=== PATIENT | female | born 1955 | race Caucasian/White ===

== ENCOUNTER → 2016-11-11 | Outpatient (CLI) | payer OTHER ==
[~2016-11-11] MED LIST: ACETAMINOPHEN-H1 TA2 PO; ASPIRIN325 M2 PO; ASPIRIN81 M1 PO; ASPIRIN81 MG PO; ATIVAN0.5 MG PO; BIAXIN FILMTAB250 MG PO; DARVOCET N 1001 TAB PO; DAYPRO600 M1 PO; DITROPAN XL10 MG PO; DOXYCYCLINE100 M3 PO; FLAGYL500 MG PO; FLEXERIL5 MG PO; FLOMAX0.4 MG PO; LEVAQUIN750 MG PO; LIPITOR40 MG PO; METRONIDAZOLE500 MG PO; NATURE'S BLEND F1 MG PO; OMEGA 31000 MG PO; OMEGA-31000 M1 PO; OMEPRAZOLE40 MG PO; PERCOCET 325 MG1 TA4 PO; PRAVASTATIN SOD40 MG PO; PRILOSEC40 M1 PO; TOPAMAX25 M3 PO; TORADOL10 MG PO; VIBRAMYCIN100 MG PO; VITAMIN D2000 IU PO; VITAMIN D5000 UNI1 PO
== END | disposition home or self-care (01) ==
LOC: CARD 09:55
DX: R00.2 Palpitations (principal)

== ENCOUNTER → 2017-08-09 | Outpatient (CLI) | payer OTHER | END | disposition home or self-care (01) | LOC: RAD 17:24 | DX: J44.1 Chronic obstructive pulmonary disease with (acute) exacerbation (principal); F17.200 Nicotine dependence, unspecified, uncomplicated; J18.9 Pneumonia, unspecified organism ==

== ENCOUNTER 2018-04-22 11:29 | Emergency (ER) | payer OTHER ==
[~2018-04-22] VITALS: Ht 157.4 cm; Wt 71.2 kg
--- NOTE | ~2018-04-22 | EKG ---
[place], [place] ELECTROCARDIOGRAM REPORT NAME: ANABELA ROGEL UNIT #: [id number] ROOM: DOCTOR: CAMILLE BROOKS MD BIRTHDATE: [birth year] DOS: 04/22/2018 TIME: 1212 hours. FINDINGS: 1. Normal sinus rhythm and sinus bradycardia at 51 beats per minute. 2. Flat T waves in chest leads. 3. An abnormal ECG. 4. No previous tracing is available for comparison. CAMILLE BROOKS MD CM:EKGRPT:ELECTROCARDIOGRAM REPORT [id number] 1412 CAMILLE BROOKS MD
[2018-04-22 12:14] LABS: BASO # 0.1 10*3/uL (0.0-0.1); BASO % 0.7 % (0.0-1.0); EOS # 0.3 10*3/uL (0.0-0.4); EOS % 2.8 % (1.0-4.0); HEMATOCRIT 40.6 % (37.0-47.0); HEMOGLOBIN 13.3 g/dl (12.0-16.0); LYMPH # 4.5 10*3/uL (1.3-4.4); LYMPH % 37.9 % (27.0-41.0); MEAN CELL VOLUME 85.8 fl (81.0-99.0); MEAN CORPUSCULAR HGB 28.1 pg (27.0-31.0); MEAN CORPUSCULAR HGB CONC 32.8 g/dl (33.0-37.0); MEAN PLATELET VOLUME 10.4 fl (9.6-12.3); MONO # 0.5 10*3/uL (0.1-1.0); MONO % 4.4 % (3.0-9.0); NEUT # 6.3 10*3/uL (2.3-7.9); NEUT % 53.9 % (47.0-73.0); PLATELET COUNT AUTOMATED 225 10*3/uL (130-400); RED BLOOD COUNT 4.73 10*6/uL (4.10-5.10); RED CELL DISTRI WIDTH 13.5 % (0-14.5); WHITE BLOOD COUNT 11.7 10*3/uL (4.8-10.8)
[2018-04-22 12:22] LABS: ACT PARTIAL THROMBO TIME 25.4 SECONDS (20.8-31.5); INTERNATIONAL NORM RATIO 0.9 (2.0-3.5)
[2018-04-22 12:30] LABS: ALBUMIN 3.8 gm/dl (3.1-4.5); ALKALINE PHOSPHATASE 79 U/L (45-117); BUN 14 mg/dl (7-24); CHLORIDE 110 mmol/L (98-107); CREATININE 0.85 mg/dL (0.55-1.02); SGOT/AST 11 IU/L (3-35); SGPT/ALT 19 U/L (12-78); SODIUM 140 mmol/L (136-145); TOTAL PROTEIN 7.5 gm/dL (6.4-8.2)
[2018-04-22 12:33] LABS: TROPONIN I < 0.015 ng/ml (<0.045)
[2018-04-22 12:51] LABS: BILIRUBIN NEGATIVE (NEGATIVE); BLOOD NEGATIVE (NEGATIVE); CLARITY CLEAR (CLEAR); COLOR YELLOW (YELLOW); GLUCOSE NEGATIVE (NEGATIVE); KETONE NEGATIVE (NEGATIVE); SPECIFIC GRAVITY 1.005 (1.005-1.030)
[2018-04-22 12:52] LABS: BACTERIA 1+; LEUKO ESTERASE NEGATIVE (NEGATIVE); NITRITE NEGATIVE (NEGATIVE); UROBILINOGEN 0.2 E.U./dl (0.2-1.0)
== END 2018-04-22 13:29 | disposition home or self-care (01) ==
LOC: ED 11:29
PROVIDERS: Nurse Practitioner Family
DX: G45.9 Transient cerebral ischemic attack, unspecified (principal); R00.2 Palpitations; F17.200 Nicotine dependence, unspecified, uncomplicated; Z90.49 Acquired absence of other specified parts of digestive tract; Z79.899 Other long term (current) drug therapy; Z79.82 Long term (current) use of aspirin

== ENCOUNTER → 2018-09-22 | Outpatient (CLI) | payer OTHER | END | disposition home or self-care (01) | LOC: MAMMO 06:54 | DX: Z12.31 Encounter for screening mammogram for malignant neoplasm of breast (principal) ==

== ENCOUNTER → 2020-09-24 | Outpatient (CLI) | payer OTHER ==
[~2020-09-24] MED LIST changes: +ADV 100/50 INH; +ATENOLOL25 MG PO; +ATORVASTATIN CA80 M1 PO; +Carafate1 GM PO; +FLUTICASONE-SA1 EAC4 INH; +LORATADINE-D 11 EACH PO; +NAPROXEN375 MG PO; +OMEGA-3-ACID ETH1 GM PO; +PROVENTIL HFA6.7 GM INH; +SPIRIVA RESPIMAT4 G1 IH; +VENT7GM INH; +VITAMIN D3125 MCG PO
== END | disposition home or self-care (01) ==
LOC: COVID19 10:51
PROVIDERS: ATTEND Internal Medicine
DX: U07.1 COVID-19 (principal)

== ENCOUNTER → 2020-10-16 | Outpatient (CLI) | payer OTHER | END | disposition home or self-care (01) | LOC: MAMMO 09-25 09:30 | PROVIDERS: ATTEND Internal Medicine Nephrology | DX: Z12.31 Encounter for screening mammogram for malignant neoplasm of breast (principal) ==

== ENCOUNTER → 2020-10-17 | Outpatient (CLI) | payer OTHER | END | disposition home or self-care (01) | LOC: NM 07:43 | PROVIDERS: ATTEND Internal Medicine | DX: R10.11 Right upper quadrant pain (principal); R10.13 Epigastric pain ==

== ENCOUNTER → 2020-11-26 | Outpatient (CLI) | payer OTHER ==
[~2020-11-26] MED LIST changes: +CITALOPRAM20 MG PO; +DOXYCYCLINE100 MG PO; +MEDROL DOSEPAK4 MG PO; +NEURONTIN100 MG PO
== END | disposition home or self-care (01) ==
LOC: RAD 11:22
PROVIDERS: ATTEND Internal Medicine Nephrology
DX: J43.9 Emphysema, unspecified (principal); F32.2 Major depressive disorder, single episode, severe without psychotic features

== ENCOUNTER 2020-12-02 12:32 | Inpatient (IN) | payer OTHER ==
[~2020-12-02] VITALS: Ht 157.4 cm; Wt 71.8 kg
[~2020-12-02 12:32] MED LIST changes: -CITALOPRAM20 MG PO; -DOXYCYCLINE100 MG PO; -MEDROL DOSEPAK4 MG PO; -NEURONTIN100 MG PO
[2020-12-02 13:05] LABS: HEMATOCRIT 37.5 % (37.0-47.0); MEAN CELL VOLUME 83.5 fl (81.0-99.0); MEAN CORPUSCULAR HGB 27.2 pg (27.0-31.0); MEAN CORPUSCULAR HGB CONC 32.5 g/dl (33.0-37.0); PLATELET COUNT AUTOMATED 235 10*3/uL (130-400); RED BLOOD COUNT 4.49 10*6/uL (4.10-5.10); RED CELL DISTRI WIDTH 14.6 % (0-14.5); WHITE BLOOD COUNT 13.3 10*3/uL (4.8-10.8)
[2020-12-02 13:16] LABS: ACT PARTIAL THROMBO TIME 23.1 SECONDS (20.0-32.1); INTERNATIONAL NORM RATIO 0.9 (2.0-3.5)
[2020-12-02 13:19] VITALS: BP 109/60
[2020-12-02 13:21] LABS: LIPASE 110 U/L (73-393)
[2020-12-02 13:22] LABS: ATYPICAL LYMPHS 1 % (0-0); PLATELET SUFFICIENCY NORMAL (NORMAL); TOTAL CELLS COUNTED 100 #CELLS
[2020-12-02 13:23] LABS: ALBUMIN 3.3 gm/dl (3.1-4.5); ALKALINE PHOSPHATASE 82 U/L (45-117); BUN 15 mg/dl (7-24); CHLORIDE 112 mmol/L (98-107); CREATININE 0.73 mg/dL (0.55-1.02); POTASSIUM 3.8 mmol/L (3.5-5.1); SGOT/AST 6 IU/L (3-35); SGPT/ALT 20 U/L (12-78); SODIUM 142 mmol/L (136-145); TOTAL PROTEIN 6.8 gm/dL (6.4-8.2)
[2020-12-02 13:26] LABS: TROPONIN I < 0.015 ng/ml (<0.045)
[2020-12-02] MEDS ORDERED: MEDROL DOSEPAK4 MG PO (15:02)
[2020-12-02 16:11] VITALS: BP 112/67
[2020-12-02 16:54] VITALS: BP 101/62
[2020-12-02 21:06] LABS: BASO # 0.1 10*3/uL (0.0-0.1); BASO % 0.6 % (0.0-1.0); EOS # 0.2 10*3/uL (0.0-0.4); EOS % 1.7 % (1.0-4.0); HEMATOCRIT 37.1 % (37.0-47.0); LYMPH # 3.2 10*3/uL (1.3-4.4); LYMPH % 30.9 % (27.0-41.0); MEAN CELL VOLUME 83.7 fl (81.0-99.0); MEAN CORPUSCULAR HGB 27.5 pg (27.0-31.0); MEAN CORPUSCULAR HGB CONC 32.9 g/dl (33.0-37.0); MEAN PLATELET VOLUME 9.9 fl (9.6-12.3); MONO # 0.4 10*3/uL (0.1-1.0); NEUT # 6.4 10*3/uL (2.3-7.9); NEUT % 62.3 % (47.0-73.0); PLATELET COUNT AUTOMATED 226 10*3/uL (130-400); RED BLOOD COUNT 4.43 10*6/uL (4.10-5.10); RED CELL DISTRI WIDTH 14.6 % (0-14.5); WHITE BLOOD COUNT 10.3 10*3/uL (4.8-10.8)
[2020-12-02 21:21] LABS: ALBUMIN 3.2 gm/dl (3.1-4.5); ALKALINE PHOSPHATASE 78 U/L (45-117); BUN 16 mg/dl (7-24); CHLORIDE 111 mmol/L (98-107); CREATININE 0.71 mg/dL (0.55-1.02); POTASSIUM 3.9 mmol/L (3.5-5.1); SGOT/AST 7 IU/L (3-35); SGPT/ALT 21 U/L (12-78); SODIUM 141 mmol/L (136-145); TOTAL PROTEIN 6.5 gm/dL (6.4-8.2)
[2020-12-02] MEDS ORDERED: CITALOPRAM20 MG PO (22:32)
[2020-12-02 22:36] VITALS: BP 122/56
[2020-12-03] VITALS: BP 117/87
[2020-12-03 08:00] VITALS: BP 111/57
[2020-12-03 12:00] VITALS: BP 102/48
[2020-12-03 18:00] VITALS: BP 100/48
[2020-12-03 20:25] VITALS: BP 115/54
[2020-12-04] VITALS: BP 100/40
[2020-12-04 06:34] LABS: BASO % 0.1 % (0.0-1.0); HEMATOCRIT 34.5 % (37.0-47.0); LYMPH # 3.3 10*3/uL (1.3-4.4); LYMPH % 15.1 % (27.0-41.0); MEAN CELL VOLUME 85.4 fl (81.0-99.0); MEAN CORPUSCULAR HGB CONC 32.8 g/dl (33.0-37.0); MEAN PLATELET VOLUME 10.5 fl (9.6-12.3); MONO % 4.8 % (3.0-9.0); NEUT # 17.1 10*3/uL (2.3-7.9); PLATELET COUNT AUTOMATED 214 10*3/uL (130-400); RED BLOOD COUNT 4.04 10*6/uL (4.10-5.10); RED CELL DISTRI WIDTH 15.1 % (0-14.5); WHITE BLOOD COUNT 21.7 10*3/uL (4.8-10.8)
[2020-12-04 06:49] LABS: BUN 15 mg/dl (7-24); CHLORIDE 112 mmol/L (98-107); CREATININE 0.62 mg/dL (0.55-1.02); SODIUM 141 mmol/L (136-145)
[2020-12-04 08:00] VITALS: BP 132/77
[2020-12-04 12:00] VITALS: BP 108/48
[2020-12-04 16:00] VITALS: BP 97/43
[2020-12-04 20:00] VITALS: BP 122/60
[2020-12-05] VITALS: BP 115/49
[2020-12-05 06:47] LABS: HEMATOCRIT 35.7 % (37.0-47.0); MEAN CELL VOLUME 84.2 fl (81.0-99.0); MEAN CORPUSCULAR HGB 27.1 pg (27.0-31.0); MEAN CORPUSCULAR HGB CONC 32.2 g/dl (33.0-37.0); MEAN PLATELET VOLUME 10.3 fl (9.6-12.3); PLATELET COUNT AUTOMATED 231 10*3/uL (130-400); RED BLOOD COUNT 4.24 10*6/uL (4.10-5.10); RED CELL DISTRI WIDTH 15.4 % (0-14.5); WHITE BLOOD COUNT 19.2 10*3/uL (4.8-10.8)
[2020-12-05 07:06] LABS: BUN 19 mg/dl (7-24); CHLORIDE 110 mmol/L (98-107); CREATININE 0.77 mg/dL (0.55-1.02); IRON 74 ug/dL (50-170); POTASSIUM 4.2 mmol/L (3.5-5.1); SODIUM 142 mmol/L (136-145); TOTAL IRON BINDING CAPACITY 284 ug/dl (250-450)
[2020-12-05 07:36] LABS: OVALOCYTES FEW; PLATELET SUFFICIENCY NORMAL (NORMAL); TOTAL CELLS COUNTED 100 #CELLS
[2020-12-05 08:00] VITALS: BP 118/56
[2020-12-05 12:00] VITALS: BP 100/47
[2020-12-05 16:00] VITALS: BP 107/48
[2020-12-05 20:00] VITALS: BP 130/76; BP 131/68
[2020-12-06] VITALS: BP 110/57
[2020-12-06 06:23] LABS: HEMATOCRIT 36.6 % (37.0-47.0); MEAN CELL VOLUME 84.9 fl (81.0-99.0); MEAN CORPUSCULAR HGB 27.4 pg (27.0-31.0); MEAN CORPUSCULAR HGB CONC 32.2 g/dl (33.0-37.0); MEAN PLATELET VOLUME 9.9 fl (9.6-12.3); PLATELET COUNT AUTOMATED 218 10*3/uL (130-400); RED BLOOD COUNT 4.31 10*6/uL (4.10-5.10); RED CELL DISTRI WIDTH 15.2 % (0-14.5); WHITE BLOOD COUNT 19.4 10*3/uL (4.8-10.8)
[2020-12-06 06:44] LABS: BUN 19 mg/dl (7-24); CHLORIDE 108 mmol/L (98-107); CREATININE 0.68 mg/dL (0.55-1.02); POTASSIUM 4.2 mmol/L (3.5-5.1); SODIUM 139 mmol/L (136-145)
[2020-12-06 07:17] LABS: PLATELET SUFFICIENCY NORMAL (NORMAL); TOTAL CELLS COUNTED 100 #CELLS
[2020-12-06 08:00] VITALS: BP 115/56
[2020-12-06 12:00] VITALS: BP 100/53
[2020-12-06] MEDS ORDERED: DOXYCYCLINE100 MG PO (12:54)
[2020-12-06] MEDS ORDERED: OMEPRAZOLE40 MG PO (12:54)
[2020-12-06] MEDS ORDERED: NEURONTIN100 MG PO (12:54)
[2020-12-06] MEDS ORDERED: MEDROL DOSEPAK4 MG PO (12:54)
== END 2020-12-06 14:30 | disposition home or self-care (01) | DRG 140 ==
LOC: ED 12:32 → EDHOLD 18:10 → 5E 18:10
PROVIDERS: Emergency Medicine; Student in an Organized Health Care Education/Training Program; ADMIT Internal Medicine; ATTEND Internal Medicine
DX: J44.1 Chronic obstructive pulmonary disease with (acute) exacerbation (principal); D72.829 Elevated white blood cell count, unspecified; E78.5 Hyperlipidemia, unspecified; K21.9 Gastro-esophageal reflux disease without esophagitis; E44.0 Moderate protein-calorie malnutrition; R00.1 Bradycardia, unspecified; E66.3 Overweight; E87.8 Other disorders of electrolyte and fluid balance, not elsewhere classified; R73.9 Hyperglycemia, unspecified; I73.9 Peripheral vascular disease, unspecified; G89.29 Other chronic pain; G43.909 Migraine, unspecified, not intractable, without status migrainosus; K29.70 Gastritis, unspecified, without bleeding; F17.200 Nicotine dependence, unspecified, uncomplicated; M25.559 Pain in unspecified hip; Z90.49 Acquired absence of other specified parts of digestive tract; Z83.3 Family history of diabetes mellitus; Z80.0 Family history of malignant neoplasm of digestive organs; Z86.73 Personal history of transient ischemic attack (TIA), and cerebral infarction without residual deficits; Z79.899 Other long term (current) drug therapy; Z68.28 Body mass index [BMI] 28.0-28.9, adult

== ENCOUNTER → 2021-04-09 | Outpatient (CLI) | payer OTHER ==
[~2021-04-09] MED LIST changes: +CITALOPRAM20 MG PO; +DOXYCYCLINE100 MG PO; +MEDROL DOSEPAK4 MG PO; +NEURONTIN100 MG PO
== END | disposition home or self-care (01) ==
LOC: RAD 16:57
PROVIDERS: ATTEND Internal Medicine
DX: M16.0 Bilateral primary osteoarthritis of hip (principal); M48.07 Spinal stenosis, lumbosacral region

== ENCOUNTER → 2021-09-15 | Outpatient (CLI) | payer OTHER | END | disposition home or self-care (01) | LOC: US 09-09 09:30 | PROVIDERS: ATTEND Internal Medicine | DX: K76.0 Fatty (change of) liver, not elsewhere classified (principal); N28.1 Cyst of kidney, acquired ==

== ENCOUNTER → 2021-12-10 | Outpatient (CLI) | payer OTHER ==
[2021-12-10 15:20] LABS: CREATININE 0.93 mg/dL (0.55-1.02)
== END | disposition home or self-care (01) ==
LOC: LAB 14:49
PROVIDERS: ATTEND Radiology Diagnostic Radiology
DX: E27.8 Other specified disorders of adrenal gland (principal)

== ENCOUNTER → 2021-12-11 | Outpatient (CLI) | payer OTHER | END | disposition home or self-care (01) | LOC: CT 00:02 | PROVIDERS: ATTEND Internal Medicine Nephrology | DX: N28.1 Cyst of kidney, acquired (principal); E27.8 Other specified disorders of adrenal gland; I70.0 Atherosclerosis of aorta ==

== ENCOUNTER → 2022-11-18 | Outpatient (CLI) | payer MEDICARE | END | disposition home or self-care (01) | LOC: CARD 00:22 | PROVIDERS: ATTEND Internal Medicine | DX: G45.3 Amaurosis fugax (principal) ==

== ENCOUNTER → 2022-11-20 | Outpatient (CLI) | payer MEDICARE | END | disposition home or self-care (01) | LOC: CARD 03:44 | PROVIDERS: ATTEND Internal Medicine | DX: G45.3 Amaurosis fugax (principal); R00.0 Tachycardia, unspecified ==

== ENCOUNTER 2023-10-28 15:57 | Emergency (ER) | payer MEDICARE, MEDICAID ==
[~2023-10-28] VITALS: Ht 157.4 cm; Wt 73.5 kg
[2023-10-28 20:21] LABS: BASO % 0.4 % (0.0-1.0); EOS % 0.2 % (1.0-4.0); HEMATOCRIT 41.5 % (37.0-47.0); LYMPH # 1.4 10*3/uL (1.3-4.4); LYMPH % 16.7 % (27.0-41.0); MEAN CELL VOLUME 84.5 fl (81.0-99.0); MEAN CORPUSCULAR HGB 26.9 pg (27.0-31.0); MEAN CORPUSCULAR HGB CONC 31.8 g/dl (33.0-37.0); MEAN PLATELET VOLUME 9.2 fl (9.6-12.3); MONO # 0.8 10*3/uL (0.1-1.0); MONO % 9.9 % (3.0-9.0); NEUT # 5.9 10*3/uL (2.3-7.9); NEUT % 72.4 % (47.0-73.0); PLATELET COUNT AUTOMATED 228 10*3/uL (130-400); RED BLOOD COUNT 4.91 10*6/uL (4.10-5.10); RED CELL DISTRI WIDTH 13.8 % (0-14.5); WHITE BLOOD COUNT 8.1 10*3/uL (4.8-10.8)
[2023-10-28 20:37] LABS: ALKALINE PHOSPHATASE 86 U/L (46-116); BUN 13 mg/dl (9-23); CHLORIDE 104 mmol/L (98-107); POTASSIUM 4.1 mmol/L (3.4-5.1); SGPT/ALT 12 U/L (5-49); TOTAL PROTEIN 7.4 gm/dL (6.0-8.0)
== END 2023-10-28 21:18 | disposition home or self-care (01) ==
LOC: ED 15:57
PROVIDERS: Physician Assistant Medical
DX: J10.1 Influenza due to other identified influenza virus with other respiratory manifestations (principal); Z20.822 Contact with and (suspected) exposure to COVID-19; J44.9 Chronic obstructive pulmonary disease, unspecified; F17.200 Nicotine dependence, unspecified, uncomplicated; Z79.2 Long term (current) use of antibiotics; Z79.899 Other long term (current) drug therapy; Z86.73 Personal history of transient ischemic attack (TIA), and cerebral infarction without residual deficits; Z90.49 Acquired absence of other specified parts of digestive tract; Z90.89 Acquired absence of other organs

== ENCOUNTER → 2024-03-31 | Outpatient (CLI) | payer OTHER ==
[~2024-03-31] MED LIST changes: +ASPIRIN CHILDRE81 MG PO; +CARAFATE1 G1 PO; +GOOD SENSE ASP325 MG PO; +MECLIZINE HCL25 M2 PO; +NEURONTIN300 MG PO; +PLAVIX75 M1 PO; +SINGULAIR10 M1 PO; -SPIRIVA RESPIMAT4 G1 IH; +SPIRIVA RESPIMAT4 G1 INH; +VITAMIN D3125 MC1 PO; +XANAX0.25 MG PO
== END | disposition home or self-care (01) ==
LOC: US 03-20 16:00
PROVIDERS: ATTEND Internal Medicine
DX: R31.21 Asymptomatic microscopic hematuria (principal)